=== PATIENT | female | born 1945 | race Caucasian/White ===

== ENCOUNTER 2016-05-18 02:25 | Emergency (ER) | payer MEDICARE, OTHER ==
[2016-05-18] MEDS ORDERED: ACETAMINOPHEN 325 MG TABLET PO ONE (02:55)
--- NOTE | 2016-05-18 02:59 | ERNOTE ---
Medical Problem HPI - General Chief Complaint: Screening, Blood Pressure Time Seen by Provider: 05/18/16 02:43 Source: patient Exam Limitations: no limitations - Immun/Allergies/Home Medications Immunizations: IMMUNIZATION HX Immunizations Up to Date Yes History of Influenza Vaccine Yes Allergies/Adverse Reactions: Allergies morphine Allergy (Severe, Verified 03/06/15 12:00) Hives Penicillins Allergy (Severe, Verified 03/06/15 12:00) LARYNGEAL EDEMA Home Medications: HOME MEDICATIONS Aspirin 325 mg PO DAILY 05/18/16 [Last Taken Unknown] Gabapentin 800 mg PO TID 05/18/16 [Last Taken Unknown] Iron 65 mg PO DAILY 05/18/16 [Last Taken Unknown] Losartan Potassium [Cozaar] 100 mg PO DAILY 05/18/16 [Last Taken Unknown] Methadone HCl [Methadone] 20 mg PO TID 05/18/16 [Last Taken Unknown] Metoprolol Succinate [Toprol Xl] 50 mg PO HS 05/18/16 [Last Taken Unknown] Sertraline HCl [Zoloft] 75 mg PO DAILY 05/18/16 [Last Taken Unknown] - History of Present History Narrative: Pt states she is having a headache, and each time she has a headache her BP is elevated. She took a extra metoprolol at around 22:30 last night. she noted that her bp was still elevated and came to the ED Timing: constant Severity: moderate Review of Systems - Review of Systems Constitutional: Absent: recent illness, fever EYE: Absent: vision changes ENT: Present: no symptoms reported Respiratory: Absent: shortness of breath Cardiology: Absent: chest pain, edema Gastrointestinal/Abdominal: Absent: nausea Genitourinary: Present: no symptoms reported Musculoskeletal: Present: no symptoms reported Skin: Present: no symptoms reported Neurological: Present: See HPI, headache Endocrine: Present: no symptoms reported Hematologic/Lymphatic: Present: no symptoms reported Psych: Present: no symptoms reported - Patient's Past Medical History Patient History - Medical: Anemia, Arthritis, Headache Patient History - Cancer: No Hx of Cancer Patient History - Surgical Procedures: Colonoscopy, Total Knee Replacement LMP (females 10-50): Menopausal - Family History Mother Family History - Medical: Alzheimer's Disease Family History - Cardiac/Respiratory: Pneumonia Father Family History - Cardiac/Respiratory: CVA/Stroke, Myocardial Infarction Brother Family History - Medical: Kidney stone - Social History Living Situations: spouse Smoking Status: Current every day smoker Have you smoked in the past 12 months: Yes Do you dip or chew tobacco: No Alcohol Use: none Drug Use: none Physical Exam - Physical Exam General Appearance: Present: wd/wn, alert, no apparent distress Eye Exam: Normal inspection: bilateral, PERRL: bilateral Neck: Present: normal inspection, nontender Respiratory: Present: no respiratory distress, normal breath sounds, no accessory muscle use, chest nontender, lungs clear Cardiovascular/Chest: Present: regular rate, rhythm, no murmur Back Exam: Present: no CVA tenderness Extremity Exam: Present: non-tender, no edema, normal range of motion Neurological Exam: Present: alert, oriented, normal mood/affect, no motor/ sensory deficits Skin Exam: Present: warm/dry. Absent: skin rash ED Progress - Vital Signs Patient's Vital Signs:: I have reviewed the patient's vital signs. Vital Signs: Vital Signs 05/18/16 02:26 Temperature 36.3 C L Pulse Rate 64 Respiratory 12 Rate Blood Pressure 187/85 O2 Sat by Pulse 96 Oximetry - Progress/Reassessment Chief Complaint: Screening, Blood Pressure Progress:: Improved Progress Note-Subjective: 05/18/16 03:35 BP has improved and headache is improving Departure - Departure Clinical Impression: Hypertension Qualifiers: Hypertension type: essential hypertension Qualified Code(s): I10 - Essential ( primary) hypertension Disposition: Home self-care Condition: Good Instructions: Hypertension, Aumi-ia-Riag Additional Instructions: See your regular doctor if you blood pressure continues to be high Referrals: Suzan Fan MD [Primary Care Provider] -
[2016-05-18] MEDS ORDERED: ACETAMINOPHEN 325 MG TABLET ONE (03:00)
[2016-05-18 03:46] VITALS: BP 157/69
== END 2016-05-18 03:45 | disposition home or self-care (01) ==
LOC: ER 02:25
DX: I10 Essential (primary) hypertension (principal); F17.210 Nicotine dependence, cigarettes, uncomplicated; Z78.0 Asymptomatic menopausal state; Z96.659 Presence of unspecified artificial knee joint

== ENCOUNTER 2020-08-08 22:00 | Observation (INO) ==
[2020-08-08 22:30] LABS: Urine Bilirubin Negative (NEGATIVE); Urine Blood Negative /ul (NEGATIVE); Urine Ketone Negative (NEGATIVE); Urine Nitrite Negative (NEGATIVE); Urine Protein Negative (NEGATIVE); Urine Specific Gravity 1.025 SP.GR. (1.005-1.010); Urine Urobilinogen Normal (NORMAL); Urine pH 5.5 pH (5.0-7.0)
[2020-08-08 22:41] LABS: Urine Appearance Clear (CLEAR); Urine Bacteria 1+; Urine Color Yellow; Urine RBC None Seen /hpf (0-5); Urine WBC 0-5 /hpf (0-5)
[2020-08-08 23:12] LABS: Hematocrit 27.8 % (37.0-47.0); Hemoglobin 8.9 gm/dL (12.5-16.0); Mean Corpuscular Hemoglobin 27.2 pg (27-31); Mean Platelet Volume 8.8 fl (8-12.5); Neutrophil # 13.1 K/mm3 (1.3-6.0); Neutrophil % 87.2 % (42-75.0); Platelet Count 327 K/mm3 (150-450); Red Blood Count 3.27 M/mm3 (4.2-5.4); Red Cell Distribution Width 14.1 % (11.5-14.0)
[2020-08-08 23:19] LABS: Magnesium 1.7 mg/dL (1.2-2.8)
[2020-08-08 23:33] LABS: Albumin * 2.8 gm/dl (3.4-5.0); BUN/Creatinine Ratio 11.4 (9.0-21.6); Bilirubin, Total 0.6 mg/dL (0.0-1.1); Ca. Corrected For Albumin 9.4 mg/dL (8.4-10.2); Calcium * 8.8 mg/dL (7.9-10.9); Carbon Dioxide 26.1 mmol/L (24-32.6); Potassium 3.1 mmol/L (3.4-4.6); Total Protein 8.1 gm/dL (6.2-8.2)
[2020-08-08] MEDS ORDERED: POTASSIUM CHLORIDE 20 MEQ TABLET.SA PO ONE (23:46)
[2020-08-09] MEDS: AZITHROMYCIN 500 MG in DEXTROSE 5 % IN WATER 250 ML IV SCH ×2 (01:01)
[2020-08-09] MEDS ORDERED: ACETAMINOPHEN 500 MG TABLET PO PRN (10:56)
[2020-08-09] MEDS ORDERED: hydrOXYzine HCL 25 MG TABLET PO PRN (11:00)
[2020-08-09] MEDS ORDERED: guaiFENesin 100 MG/5 ML SYRUP PO PRN (11:00)
[2020-08-09] MEDS: VITAMIN B COMPLEX PO SCH (11:16)
[2020-08-09] MEDS: MULTIVIT-MIN/FA/LYCOPEN/LUTEIN 1 TAB TABLET PO SCH (11:16)
[2020-08-09] MEDS: ENOXAPARIN SODIUM 40 MG/0.4 ML SYRG SC SCH (11:16)
[2020-08-09] MEDS: ASPIRIN 325 MG TABLET.DR PO SCH (11:16)
[2020-08-09] MEDS: ASCORBIC ACID 500 MG TABLET PO SCH (11:16)
[2020-08-09] MEDS ORDERED: NORMAL SALINE 1,000 ML IV ONE (11:16)
[2020-08-09 11:34] LABS: Albumin * 2.3 gm/dl (3.4-5.0); Anion Gap 9.4 mmol/L (6.8-13.8); BUN/Creatinine Ratio 10.8 (9.0-21.6); Bilirubin, Total 0.4 mg/dL (0.0-1.1); Ca. Corrected For Albumin 9.7 mg/dL (8.4-10.2); Calcium * 8.7 mg/dL (7.9-10.9); Carbon Dioxide 29.7 mmol/L (24-32.6); Potassium 3.1 mmol/L (3.4-4.6); Total Protein 7.2 gm/dL (6.2-8.2)
--- NOTE | 2020-08-09 11:48 | HP ---
Chief Complaint - Chief Complaint Date of Service: 08/09/20 Time of Service: 11:36 Chief Complaint: I have been feeling weak and had a fever for several days. History of Present Illness: 75-year-old female with past medical history of hypertension, anxiety disorder, depression, TIA, chronic pain syndrome, and CKD was evaluated in the ER for increasing generalized weakness and several episodes of fever over the past few days. Patient reports she has been progressively weak and unable to even stand from a sitting position, and has required assistance that she did not need before. She admits to fever and chills that started 2 days ago and says she's been feeling acutely ill. While in the ER the patient underwent a work-up that revealed leukocytosis with left shift and left lower lobe consolidation with a small pleural effusion on imaging. These findings make an acute lobar pneumonia very likely, so she was started on IV antibiotics in the ER. She was also found to be hypokalemic and received potassium replacement. Medical History (Last Reviewed 08/09/20 @ 02:32 by Arnav Valiente RN) Anemia Onset Date: 09/13/11 Fe def and MGUS Anxiety and depression Onset Date: 03/29/14 Chronic pain Cystocele with uterine prolapse Onset Date: 03/01/12 Hypertension Onset Date: 03/29/14 Neuropathy Onset Date: Unknown lower limbs and back Osteoarthritis Onset Date: 03/29/14 Osteopenia Onset Date: 02/15/13 TIA (transient ischemic attack) Onset Date: 1999 2 Vulvar lesion Onset Date: 02/15/13 Herniated disc Surgical History: Surgical History (Last Reviewed 08/09/20 @ 02:33 by Arnav Valiente RN) Colostomy in place H/O colonoscopy Onset Date: 11/08/14 Tinguely--'10 via colostomy and rectum- normal. '15 normal. Recheck 10 yrs.- 10/31/09, 11/08/14 H/O knee surgery Onset Date: 04/2017 left knee replacement- 05/1999- [facility] in [facility]; redo 04/2017. right knee replacement- 2009- [facility] History of back surgery History of breast biopsy Onset Date: Unknown benign History of cystoscopy Onset Date: 04/2003 Rad[facility] History of esophagogastroduodenoscopy (EGD) Onset Date: 11/08/14 with biopsy- Tinguely- CLOtest negative. clotest negative- 10/01/11, 11/08/14 History of hip surgery Onset Date: 01/02/13 Bilateral hip replacement- [facility] History of lumpectomy of left breast Onset Date: 1969 benign History of sinus surgery Onset Date: 1977 History of tonsillectomy Onset Date: 1962 femur fracture surgery Onset Date: 03/2003 right-permament plate and screws-[facility] punctured artery lower abdomin Pt states that she tried to self cath self and "hit an artery". unsure where. ruptured disk surgery L4-L5 1993 Family History: Family History (Last Reviewed 08/09/20 @ 02:34 by Arnav Valiente RN) Mother , 90 Alzheimers disease CHF (congestive heart failure) CVA (cerebral vascular accident) Pneumonia Father , 66 Pneumonia Heart disease CVA (cerebral vascular accident) Myocardial infarction, Onset Age: 52 Brother Hypertension Diverticulosis Brother Hypertension DJD (degenerative joint disease) Social History: (Last Updated 08/09/20 @ 02:36 by Arnav Valiente RN) Social History: Marital status: lives independently: Yes household members: spouse number of children: 2 current occupational status: retired Service: No Tobacco: Smoking Status: Former smoker tobacco type: cigarettes Years smoked: 5 Alcohol: alcohol intake: never Substance Use: substance use type: does not use Dietary Habits: caffeine: Yes caffeine comment: 5-6/day Type: carbonated beverages Peds Patient Hx - Developmental: No Pertinent Hx Peds Patient Hx - Medical: No Pertinent Hx Peds Patient Hx - Cardiac/Respiratory: No Pertinent Hx Peds Patient Hx - Surgical: No Surgical History Patient History - Cancer: No Hx of Cancer Review Of Systems (GEN) - Review of Systems Generalized/Overall Review: Present: Weakness, Chills, Fever, Fatigue EENTM: Present: No Symptoms Reported Respiratory: Present: No Symptoms Reported Cardiac: Present: No Symptoms Reported Abdominal: Present: No Symptoms Reported Genitourinary: Present: No Symptoms Reported Musculoskeletal: Present: No Symptoms Reported Neurological: Present: No Symptoms Reported Skin: Present: No Symptoms Reported Endocrine: Present: No Symptoms Reported Immunizations: IMMUNIZATION HX Immunizations Up to Date Yes History of Influenza Vaccine Yes Hx Pneumococcal Vaccination Yes Allergies/Adverse Reactions: Allergies Allergy/AdvReac Type Severity Reaction Status Date / Time morphine Allergy Severe Hives Verified 08/08/20 22:59 Penicillins Allergy Severe LARYNGEAL Verified 08/08/20 22:59 EDEMA Home Medications: HOME MEDICATIONS multivit with [id number]-lutein 8 mg iron-400 mcg-300 mcg tablet 1 tab PO DAILY tab 12/24/17 [Last Taken Unknown] vitamin B complex 1 tab PO DAILY 12/24/17 [Last Taken Unknown] methadone 5 mg tablet 5 mg PO BID tab 01/30/19 [Last Taken Unknown] ascorbic acid (vitamin C) 1,000 mg tablet 1 g PO DAILY #90 tab 09/18/19 [Last Taken Unknown] aspirin 325 mg tablet 325 mg PO DAILY #90 tab 09/28/19 [Last Taken Unknown] amlodipine 10 mg tablet 10 mg PO DAILY #90 tab 01/07/20 [Last Taken Unknown] Durable Medical Equipment 0 .ROUTE .MEDSUPPLY #1 ea 01/29/20 [Last Taken Unknown] ostomy supplies See Rx Instructions .ROUTE .MEDSUPPLY #1 ea 06/16/20 [Last Taken Unknown] Hydroxyzine HCl See Rx Instructions PO PRN 08/09/20 [Last Taken Unknown] Exam - Exam Vital Signs: Vital Signs - Last Taken Temp 37.5 C 08/09/20 10:25 Pulse 77 08/09/20 10:25 Resp 18 08/09/20 10:25 BP 111/50 08/09/20 10:25 Pulse Ox 97 08/09/20 10:25 Constitutional: Present: Alert, Oriented x3, Cooperative, No distress, Elderly ENT Exam: Present: normal ENT inspection, hearing grossly normal Eye Exam: bilateral eye: normal inspection, PERRL, EOMI Neck: Present: non-tender, full range of motion, supple, normal inspection, trachea midline Back Exam: Present: no CVA tenderness, no vertebral tenderness, decreased range of motion Breasts: Present: Exam deferred Respiratory: Present: decreased breath sounds, crackles - Crackles and decreased lung sounds on left base Cardiovascular/Chest: Present: normal peripheral pulses, regular rate, rhythm, no chest tenderness, no edema, no gallop, no JVD, no murmur, no rub Peripheral Pulses: dorsalis-pedis (R): 2+, dorsalis-pedis (L): 2+ Abdomen: Present: Normal bowel sounds, soft, nontender, nondistended, no rebound tenderness, no hepatospenomegaly, no masses /Rectal: Present: Exam deferred Extremity: Present: normal range of motion, non-tender, no calf tenderness Skin Exam: Present: normal color, warm/dry, no cyanosis Lymphatic: Present: no adenopathy Neurologic: Present: stockkeeper II-XII nml as tested, normal cerebellar test, no motor/sensory deficits, alert, normal mood/affect, oriented x 3 Appearance: Present: appropriate appearance, appropriate insight, neat, no memory impairment Eye contact: Present: cooperative, good eye contact, normal speech Thoughts: Present: normal thought pattern, no apparent hallucination Diagnostic Studies: Abnormal Lab Results 08/08/20 08/08/20 08/08/20 Range/Units 22:20 23:00 23:00 WBC 15.0 H (4.0-10.5) K/mm3 RBC 3.27 L (4.2-5.4) M/mm3 Hgb 8.9 L (12.5-16.0) gm/dL Hct 27.8 L (37.0-47.0) % RDW 14.1 H (11.5-14.0) % Immature Gran # (Auto) 0.06 H (0.000-0.0310) K/mm3 Neutrophils % 87.2 H (42-75.0) % Lymphocytes % 6.0 L (20-51) % Neutrophils # 13.1 H (1.3-6.0) K/mm3 Lymphocytes # 0.90 L (1.5-3.5) k/mm3 Potassium 3.1 L (3.4-4.6) mmol/L Est GFR (Non-Af Amer) 39 L (60-130) mL/min Random Glucose 139 H (70-110) mg/dL ALT 17 L (19-67) U/L Albumin 2.8 L (3.4-5.0) gm/dl Urine Bacteria 1+ H (NONE) Microbiology 08/08/20 22:20 Urine Culture - Preliminary Urine,Catheterized No Growth Laboratory Results WBC 15.0 K/mm3 (4.0-10.5) H 08/08/20 23:00 RBC 3.27 M/mm3 (4.2-5.4) L 08/08/20 23:00 Hgb 8.9 gm/dL (12.5-16.0) L 08/08/20 23:00 Hct 27.8 % (37.0-47.0) L 08/08/20 23:00 MCV 85.0 fl (78-100) 08/08/20 23:00 MCH 27.2 pg (27-31) 08/08/20 23:00 MCHC 32.0 g/dl (32-36) 08/08/20 23:00 RDW 14.1 % (11.5-14.0) H 08/08/20 23:00 Plt Count 327 K/mm3 (150-450) 08/08/20 23:00 MPV 8.8 fl (8-12.5) 08/08/20 23:00 Immature Gran % (Auto) 0.40 % (0.001-0.429) 08/08/20 23:00 Immature Gran # (Auto) 0.06 K/mm3 (0.000-0.0310) H 08/08/20 23:00 Neutrophils % 87.2 % (42-75.0) H 08/08/20 23:00 Lymphocytes % 6.0 % (20-51) L 08/08/20 23:00 Monocytes % 4.9 % (0.0-9) 08/08/20 23:00 Eosinophils % 1.2 % (0.0-3.0) 08/08/20 23:00 Basophils % 0.3 % (0.0-1.0) 08/08/20 23:00 Nucleated RBC % 0.0 k/mm3 (0-1) 08/08/20 23:00 Neutrophils # 13.1 K/mm3 (1.3-6.0) H 08/08/20 23:00 Lymphocytes # 0.90 k/mm3 (1.5-3.5) L 08/08/20 23:00 Monocytes # 0.7 k/mm3 (0.0-1.0) 08/08/20 23:00 Eosinophils # 0.2 k/mm3 (0.0-0.7) 08/08/20 23:00 Absolute Basophils 0.0 k/mm3 (0.0-0.1) 08/08/20 23:00 Sodium 139 mmol/L (132-142) 08/08/20 23:00 Plasma Sodium 140 mmol/L (130-142) 08/08/20 23:00 Potassium 3.1 mmol/L (3.4-4.6) L 08/08/20 23:00 Chloride 103 mmol/L (97-106) 08/08/20 23:00 Carbon Dioxide 26.1 mmol/L (24-32.6) 08/08/20 23:00 Anion Gap 13.0 mmol/L (6.8-13.8) 08/08/20 23:00 BUN 16 mg/dL (3-23) 08/08/20 23:00 Creatinine 1.40 mg/dL (0.4-1.4) 08/08/20 23:00 Est GFR (Non-Af Amer) 39 mL/min (60-130) L 08/08/20 23:00 BUN/Creatinine Ratio 11.4 (9.0-21.6) 08/08/20 23:00 Random Glucose 139 mg/dL (70-110) H 08/08/20 23:00 Lactic Acid, Venous 0.9 mmol/L (0.4-2.0) 08/08/20 23:00 Calcium 8.8 mg/dL (7.9-10.9) 08/08/20 23:00 Calcium Adj for Albumin 9.4 mg/dL (8.4-10.2) 08/08/20 23:00 Magnesium 1.7 mg/dL (1.2-2.8) 08/08/20 23:00 Total Bilirubin 0.6 mg/dL (0.0-1.1) 08/08/20 23:00 AST 23 U/L (0-48) 08/08/20 23:00 ALT 17 U/L (19-67) L 08/08/20 23:00 Alkaline Phosphatase 133 U/L (50-170) 08/08/20 23:00 Total Protein 8.1 gm/dL (6.2-8.2) 08/08/20 23:00 Albumin 2.8 gm/dl (3.4-5.0) L 08/08/20 23:00 TSH (Reflex) 0.480 uIU/mL (0.358-3.74) 08/08/20 23:00 Urine Color Yellow 08/08/20 22:20 Urine Appearance Clear (CLEAR) 08/08/20 22:20 Urine pH 5.5 pH (5.0-7.0) 08/08/20 22:20 Ur Specific [place] 1.025 SP.GR. (1.005-1.010) 08/08/20 22:20 Urine Protein Negative mg/dL (NEGATIVE) 08/08/20 22:20 Urine Glucose (UA) Negative mg/dL (NEGATIVE) 08/08/20 22:20 Urine Ketones Negative mg/dL (NEGATIVE) 08/08/20 22:20 Urine Blood Negative /ul (NEGATIVE) 08/08/20 22:20 Urine Nitrate Negative (NEGATIVE) 08/08/20 22:20 Urine Bilirubin Negative mg/dl (NEGATIVE) 08/08/20 22:20 Urine Urobilinogen Normal EU/dl (NORMAL) 08/08/20 22:20 Ur Leukocyte Esterase Negative /ul (NEGATIVE) 08/08/20 22:20 Urine RBC None seen /hpf (0-5) 08/08/20 22:20 Urine WBC 0-5 /hpf (0-5) 08/08/20 22:20 Ur Epithelial Cells 0-5 /hpf (0-5) 08/08/20 22:20 Urine Bacteria 1+ (NONE) H 08/08/20 22:20 Urine Culture Comments Culture to follow 08/08/20 22:20 SARS-CoV-2 (PCR) Not detected (NotDetected) 08/09/20 00:07 Assessment/Plan - Narrative Narrative: Patient was evaluated medical chart was reviewed and decision to admit to [facility] for diagnosis of left lobar pneumonia with small pleural effusion was made. Patient is resting comfortably in her room and is tolerating the current treatment without any issues. Since arriving to the floor she has not had recurrence of fever and does not complain of any other symptoms for now. To address her generalized weakness physical therapy was ordered and sessions started this morning. The patient was found to be hypokalemic in the ER and was administered potassium replacement, CMP has been ordered for reevaluation. We will follow-up the results and treat her accordingly. In the meantime we will continue treating with dual antibiotic therapy and IV hydration and reevaluate her tomorrow's morning rounds. - Assessment/Plan (1) Lobar pneumonia Problem: Acute (2) Generalized weakness Problem: Acute (3) Dehydration determined by examination Problem: Acute (4) Hypokalemia Problem: Acute (5) Acute kidney injury superimposed on CKD Problem: Acute
[2020-08-09] MEDS: METHADONE HCL 10 MG TABLET PO SCH ×2 (11:52→20:39)
[2020-08-09] MEDS: POTASSIUM CHLORIDE IN WATER 100 ML IV SCH ×4 (13:14→16:09)
--- NOTE | 2020-08-09 17:59 | HP ---
Chief Complaint - Chief Complaint Date of Service: 08/08/20 Time of Service: 22:50 Chief Complaint: Generalized weakness, fever History of Present Illness: Patient is very nice 75-year-old female present emergency room accompanied by significant other ambulatory with chief complaint of generalized fatigue, fever 100 to about 3 hours ago, not eating well for last 3 weeks and not being able to ambulate with walker. She had a hard time standing from sitting position to grab his walker and walk. She has been in the past with history significant for stage IIIb kidney failure, colostomy due to old low back surgery in 1994. She is taking high blood pressure medications. Patient came to the emergency room mainly due to the fever and not being able to ambulate well denies any chest pain, shortness of breath but she has some off-and-on cough. In the initial evaluation patient has saturation of 87-89 with an room air and significantly improved after being on 2 L of nasal cannula oxygen. Initial evaluation showed the patient is hypokalemic and then we replaced that. X-ray showed patient is having left lobar pneumonia and fever and she fell to the criteria with neutrophilia we getting admit the patient for generalized conditioning and left lobar pneumonia Medical History (Last Reviewed 08/09/20 @ 02:32 by Arnav Valiente RN) Anemia Onset Date: 09/13/11 Fe def and MGUS Anxiety and depression Onset Date: 03/29/14 Chronic pain Cystocele with uterine prolapse Onset Date: 03/01/12 Hypertension Onset Date: 03/29/14 Neuropathy Onset Date: Unknown lower limbs and back Osteoarthritis Onset Date: 03/29/14 Osteopenia Onset Date: 02/15/13 TIA (transient ischemic attack) Onset Date: 1999 2 Vulvar lesion Onset Date: 02/15/13 Herniated disc Surgical History: Surgical History (Last Reviewed 08/09/20 @ 02:33 by Arnav Valiente RN) Colostomy in place H/O colonoscopy Onset Date: 11/08/14 Tinguely--'10 via colostomy and rectum- normal. '15 normal. Recheck 10 yrs.- 10/31/09, 11/08/14 H/O knee surgery Onset Date: 04/2017 left knee replacement- 05/1999- [facility] in [facility]; redo 04/2017. right knee replacement- 2009- [facility] History of back surgery History of breast biopsy Onset Date: Unknown benign History of cystoscopy Onset Date: 04/2003 Rad[facility] History of esophagogastroduodenoscopy (EGD) Onset Date: 11/08/14 with biopsy- [facility]- CLOtest negative. clotest negative- 10/01/11, 11/08/14 History of hip surgery Onset Date: 01/02/13 Bilateral hip replacement- [facility] History of lumpectomy of left breast Onset Date: 1969 benign History of sinus surgery Onset Date: 1977 History of tonsillectomy Onset Date: 1962 femur fracture surgery Onset Date: 03/2003 right-permament plate and screws-[facility] punctured artery lower abdomin Pt states that she tried to self cath self and "hit an artery". unsure where. ruptured disk surgery L4-L5 1993 Family History: Family History (Last Reviewed 08/09/20 @ 02:34 by Arnav Valiente RN) Mother , 90 Alzheimers disease CHF (congestive heart failure) CVA (cerebral vascular accident) Pneumonia Father , 66 Pneumonia Heart disease CVA (cerebral vascular accident) Myocardial infarction, Onset Age: 52 Brother Hypertension Diverticulosis Brother Hypertension DJD (degenerative joint disease) Social History: (Last Updated 08/09/20 @ 02:36 by Arnav Valiente RN) Social History: Marital status: lives independently: Yes household members: spouse number of children: 2 current occupational status: retired Service: No Tobacco: Smoking Status: Former smoker tobacco type: cigarettes Years smoked: 5 Alcohol: alcohol intake: never Substance Use: substance use type: does not use Dietary Habits: caffeine: Yes caffeine comment: 5-6/day Type: carbonated beverages Review Of Systems (GEN) - Review of Systems Misc: All systems neg except as marked Additional Comments: I document all the abnormal finding in HPI Immunizations: IMMUNIZATION HX Immunizations Up to Date Yes History of Influenza Vaccine Yes Hx Pneumococcal Vaccination Yes Allergies/Adverse Reactions: Allergies Allergy/AdvReac Type Severity Reaction Status Date / Time morphine Allergy Severe Hives Verified 08/08/20 22:59 Penicillins Allergy Severe LARYNGEAL Verified 08/08/20 22:59 EDEMA Home Medications: HOME MEDICATIONS multivit with rgendoxx-ggiy-W[place]-lutein 8 mg iron-400 mcg-300 mcg tablet 1 tab PO DAILY tab 12/24/17 [Last Taken Unknown] vitamin B complex 1 tab PO DAILY 12/24/17 [Last Taken Unknown] methadone 5 mg tablet 5 mg PO BID tab 01/30/19 [Last Taken Unknown] ascorbic acid (vitamin C) 1,000 mg tablet 1 g PO DAILY #90 tab 09/18/19 [Last Taken Unknown] aspirin 325 mg tablet 325 mg PO DAILY #90 tab 09/28/19 [Last Taken Unknown] amlodipine 10 mg tablet 10 mg PO DAILY #90 tab 01/07/20 [Last Taken Unknown] Durable Medical Equipment 0 .ROUTE .MEDSUPPLY #1 ea 01/29/20 [Last Taken Unknown] ostomy supplies See Rx Instructions .ROUTE .MEDSUPPLY #1 ea 06/16/20 [Last Taken Unknown] Hydroxyzine HCl See Rx Instructions PO PRN 08/09/20 [Last Taken Unknown] Exam - Exam Vital Signs: Vital Signs - Last Taken Temp 37.5 C 08/09/20 10:25 Pulse 81 08/09/20 14:33 Resp 18 08/09/20 14:33 BP 110/50 08/09/20 14:33 Pulse Ox 93 08/09/20 14:33 Constitutional: Present: Alert, Well developed, No distress. Absent: Well nourished ENT Exam: Present: normal ENT inspection, hearing grossly normal, pharynx normal, TMs normal Eye Exam: bilateral eye: normal inspection, PERRL, EOMI Back Exam: Present: normal inspection, no CVA tenderness, no vertebral tenderness Respiratory: Present: chest non-tender, decreased breath sounds, crackles. Absent: lungs clear, normal breath sounds Cardiovascular/Chest: Present: normal peripheral pulses, regular rate, rhythm, no chest tenderness, no gallop, no JVD. Absent: no edema, JVD Peripheral Pulses: carotid (R): 2+, carotid (L): 2+, femoral (R): 2+, femoral (L): 2+, dorsalis-pedis (R): 2+, dorsalis-pedis (L): 2+, radial (R): 2+, radial (L): 2+ Abdomen: Present: Normal bowel sounds, soft, nontender Extremity: Present: normal range of motion, non-tender, normal inspection, no calf tenderness, pedal edema. Absent: no pedal edema Skin Exam: Present: normal color, warm/dry, no cyanosis Lymphatic: Present: no adenopathy Neurologic: Present: wheel installer II-XII nml as tested, normal cerebellar test Appearance: Present: appropriate appearance, impaired recent memory. Absent: no memory impairment Eye contact: Present: cooperative Diagnostic Studies: Abnormal Lab Results 08/08/20 08/08/20 08/08/20 Range/Units 22:20 23:00 23:00 WBC 15.0 H (4.0-10.5) K/mm3 RBC 3.27 L (4.2-5.4) M/mm3 Hgb 8.9 L (12.5-16.0) gm/dL Hct 27.8 L (37.0-47.0) % RDW 14.1 H (11.5-14.0) % Immature Gran # (Auto) 0.06 H (0.000-0.0310) K/mm3 Neutrophils % 87.2 H (42-75.0) % Lymphocytes % 6.0 L (20-51) % Neutrophils # 13.1 H (1.3-6.0) K/mm3 Lymphocytes # 0.90 L (1.5-3.5) k/mm3 Potassium 3.1 L (3.4-4.6) mmol/L Est GFR (Non-Af Amer) 39 L (60-130) mL/min Random Glucose 139 H (70-110) mg/dL ALT 17 L (19-67) U/L Albumin 2.8 L (3.4-5.0) gm/dl Urine Bacteria 1+ H (NONE) 08/09/20 Range/Units 11:14 WBC (4.0-10.5) K/mm3 RBC (4.2-5.4) M/mm3 Hgb (12.5-16.0) gm/dL Hct (37.0-47.0) % RDW (11.5-14.0) % Immature Gran # (Auto) (0.000-0.0310) K/mm3 Neutrophils % (42-75.0) % Lymphocytes % (20-51) % Neutrophils # (1.3-6.0) K/mm3 Lymphocytes # (1.5-3.5) k/mm3 Potassium 3.1 L (3.4-4.6) mmol/L Est GFR (Non-Af Amer) 43 L (60-130) mL/min Random Glucose (70-110) mg/dL ALT 18 L (19-67) U/L Albumin 2.3 L (3.4-5.0) gm/dl Urine Bacteria (NONE) Microbiology 08/08/20 22:20 Urine Culture - Preliminary Urine,Catheterized No Growth Laboratory Results WBC 15.0 K/mm3 (4.0-10.5) H 08/08/20 23:00 RBC 3.27 M/mm3 (4.2-5.4) L 08/08/20 23:00 Hgb 8.9 gm/dL (12.5-16.0) L 08/08/20 23:00 Hct 27.8 % (37.0-47.0) L 08/08/20 23:00 MCV 85.0 fl (78-100) 08/08/20 23:00 MCH 27.2 pg (27-31) 08/08/20 23:00 MCHC 32.0 g/dl (32-36) 08/08/20 23:00 RDW 14.1 % (11.5-14.0) H 08/08/20 23:00 Plt Count 327 K/mm3 (150-450) 08/08/20 23:00 MPV 8.8 fl (8-12.5) 08/08/20 23:00 Immature Gran % (Auto) 0.40 % (0.001-0.429) 08/08/20 23:00 Immature Gran # (Auto) 0.06 K/mm3 (0.000-0.0310) H 08/08/20 23:00 Neutrophils % 87.2 % (42-75.0) H 08/08/20 23:00 Lymphocytes % 6.0 % (20-51) L 08/08/20 23:00 Monocytes % 4.9 % (0.0-9) 08/08/20 23:00 Eosinophils % 1.2 % (0.0-3.0) 08/08/20 23:00 Basophils % 0.3 % (0.0-1.0) 08/08/20 23:00 Nucleated RBC % 0.0 k/mm3 (0-1) 08/08/20 23:00 Neutrophils # 13.1 K/mm3 (1.3-6.0) H 08/08/20 23:00 Lymphocytes # 0.90 k/mm3 (1.5-3.5) L 08/08/20 23:00 Monocytes # 0.7 k/mm3 (0.0-1.0) 08/08/20 23:00 Eosinophils # 0.2 k/mm3 (0.0-0.7) 08/08/20 23:00 Absolute Basophils 0.0 k/mm3 (0.0-0.1) 08/08/20 23:00 Sodium 141 mmol/L (132-142) 08/09/20 11:14 Plasma Sodium 141 mmol/L (130-142) 08/09/20 11:14 Potassium 3.1 mmol/L (3.4-4.6) L 08/09/20 11:14 Chloride 105 mmol/L (97-106) 08/09/20 11:14 Carbon Dioxide 29.7 mmol/L (24-32.6) 08/09/20 11:14 Anion Gap 9.4 mmol/L (6.8-13.8) 08/09/20 11:14 BUN 14 mg/dL (3-23) 08/09/20 11:14 Creatinine 1.30 mg/dL (0.4-1.4) 08/09/20 11:14 Est GFR (Non-Af Amer) 43 mL/min (60-130) L 08/09/20 11:14 BUN/Creatinine Ratio 10.8 (9.0-21.6) 08/09/20 11:14 Random Glucose 107 mg/dL (70-110) 08/09/20 11:14 Lactic Acid, Venous 0.9 mmol/L (0.4-2.0) 08/08/20 23:00 Calcium 8.7 mg/dL (7.9-10.9) 08/09/20 11:14 Calcium Adj for Albumin 9.7 mg/dL (8.4-10.2) 08/09/20 11:14 Magnesium 1.7 mg/dL (1.2-2.8) 08/08/20 23:00 Total Bilirubin 0.4 mg/dL (0.0-1.1) 08/09/20 11:14 AST 19 U/L (0-48) 08/09/20 11:14 ALT 18 U/L (19-67) L 08/09/20 11:14 Alkaline Phosphatase 111 U/L (50-170) 08/09/20 11:14 Total Protein 7.2 gm/dL (6.2-8.2) 08/09/20 11:14 Albumin 2.3 gm/dl (3.4-5.0) L 08/09/20 11:14 TSH (Reflex) 0.480 uIU/mL (0.358-3.74) 08/08/20 23:00 Urine Color Yellow 08/08/20 22:20 Urine Appearance Clear (CLEAR) 08/08/20 22:20 Urine pH 5.5 pH (5.0-7.0) 08/08/20 22:20 Ur Specific [place] 1.025 SP.GR. (1.005-1.010) 08/08/20 22:20 Urine Protein Negative mg/dL (NEGATIVE) 08/08/20 22:20 Urine Glucose (UA) Negative mg/dL (NEGATIVE) 08/08/20 22:20 Urine Ketones Negative mg/dL (NEGATIVE) 08/08/20 22:20 Urine Blood Negative /ul (NEGATIVE) 08/08/20 22:20 Urine Nitrate Negative (NEGATIVE) 08/08/20 22:20 Urine Bilirubin Negative mg/dl (NEGATIVE) 08/08/20 22:20 Urine Urobilinogen Normal EU/dl (NORMAL) 08/08/20 22:20 Ur Leukocyte Esterase Negative /ul (NEGATIVE) 08/08/20 22:20 Urine RBC None seen /hpf (0-5) 08/08/20 22:20 Urine WBC 0-5 /hpf (0-5) 08/08/20 22:20 Ur Epithelial Cells 0-5 /hpf (0-5) 08/08/20 22:20 Urine Bacteria 1+ (NONE) H 08/08/20 22:20 Urine Culture Comments Culture to follow 08/08/20 22:20 SARS-CoV-2 (PCR) Not detected (NotDetected) 08/09/20 00:07 Assessment/Plan - Narrative Narrative: Patient is being admitted for acute left lobar pneumonia, patient also needs to be evaluated for her general deconditioning I personally talked to the hospitalist and she kindly accepted the patient She will be followed up by her tomorrow
[2020-08-09] MEDS: PANTOPRAZOLE SODIUM 20 MG TABLET.DR PO SCH (20:39)
[2020-08-10] MEDS: AZITHROMYCIN 500 MG in DEXTROSE 5 % IN WATER 250 ML IV SCH ×2 (00:41)
[2020-08-10 06:44] LABS: Hematocrit 26.3 % (37.0-47.0); Hemoglobin 8.3 gm/dL (12.5-16.0); Mean Cell Volume 84.8 fl (78-100); Mean Corpuscular Hemoglobin 26.8 pg (27-31); Mean Corpuscular Hgb Conc 31.6 g/dl (32-36); Mean Platelet Volume 8.6 fl (8-12.5); Platelet Count 317 K/mm3 (150-450); White Blood Count 8.1 K/mm3 (4.0-10.5)
[2020-08-10 06:49] LABS: Total Cells Counted 100
[2020-08-10 06:58] LABS: BUN/Creatinine Ratio 8.3 (9.0-21.6)
[2020-08-10 06:59] LABS: Albumin * 2.4 gm/dl (3.4-5.0); Anion Gap 9.2 mmol/L (6.8-13.8); Bilirubin, Total 0.3 mg/dL (0.0-1.1); Ca. Corrected For Albumin 9.9 mg/dL (8.4-10.2); Calcium * 8.9 mg/dL (7.9-10.9); Potassium 3.2 mmol/L (3.4-4.6); Total Protein 7.1 gm/dL (6.2-8.2)
[2020-08-10] MEDS: PANTOPRAZOLE SODIUM 20 MG TABLET.DR PO SCH (07:05)
[2020-08-10 07:20] LABS: Atypical (Reactive) Lymph 2 % (0-2); Band 1 % (0-2.0); Basophil 1 % (0-1); Basophilic Stippling Trace; Eosinophil 11 % (0-3); Lymphocyte 23 % (20-51); Monocyte 6 % (0-9); Neutrophil 56 % (42-75); Neutrophil # 4.5 K/mm3 (1.3-6.0); Platelet Estimate Normal (NORMAL)
[2020-08-10 07:23] LABS: Anisocytosis Trace; Hypochromia 1+
[2020-08-10] MEDS: ASCORBIC ACID 500 MG TABLET PO SCH (10:01)
[2020-08-10] MEDS: ASPIRIN 325 MG TABLET.DR PO SCH (10:01)
[2020-08-10] MEDS: METHADONE HCL 10 MG TABLET PO SCH (10:01)
[2020-08-10] MEDS: MULTIVIT-MIN/FA/LYCOPEN/LUTEIN 1 TAB TABLET PO SCH (10:01)
[2020-08-10] MEDS: VITAMIN B COMPLEX PO SCH (10:01)
[2020-08-10] MEDS: ENOXAPARIN SODIUM 40 MG/0.4 ML SYRG SC SCH (10:02)
[2020-08-10] MEDS ORDERED: POTASSIUM CHLORIDE 20 MEQ TABLET.SA PO ONE (12:01)
--- NOTE | 2020-08-10 12:21 | DS ---
(1) Lobar pneumonia Problem: Acute (2) Generalized weakness Problem: Acute (3) Dehydration determined by examination Problem: Acute (4) Hypokalemia Problem: Acute (5) Acute kidney injury superimposed on CKD Problem: Acute Date of Discharge:: 08/10/20 Hospital Course: 75-year-old female admitted for acute lobar pneumonia, dehydration, and generalized weakness was evaluated bedside this morning and was found to be afebrile and in no acute distress. Patient was in better spirits today and reports feeling stronger however she still reports residual weakness during activities. It was explained to patient that her original strength would take a few days to return and we expect that, in the meantime she is to increase her hydration and oral intake to nourish her body. Patient's blood pressure only slightly improved with 4 bags of potassium, therefore an additional dose of oral potassium was ordered. Her renal function has significantly improved however. We will discharge patient with instructions to follow-up with me her PCP in the clinic with a follow-up CMP to reevaluate electrolytes and renal function. Patient will also need assistance at home for several days, so she has agreed to home health services with . Mrs. Partida is homebound due to limited ambulation and significant issues with balance. She has a need for ongoing physical therapy to address her weakness and issues with balance, this was recommended by her in-hospital physical therapist. She will also need a home health aide to assist with activities of daily living since herself and her are both elderly. Therefore orders for home health with with PT and a home health aide were placed. The need for home health care at skilled services is directly related to the time spent [id number] with the patient. Procedures Performed: none Results and Findings: Pending Mircobiology Results 08/08/20 22:20 Urine,Catheterized Urine Culture - Preliminary No Pathogens Isolated 08/08/20 23:25 Blood Blood Culture - Preliminary NO GROWTH 24 HOURS 08/08/20 23:00 Blood Blood Culture - Preliminary NO GROWTH 24 HOURS Lab Pending Results 08/08/20 22:20: Urine Color Yellow, Urine Appearance Clear, Urine pH 5.5, Ur Specific [place] 1.025, Urine Protein Negative, Urine Glucose (UA) Negative, Urine Ketones Negative, Urine Blood Negative, Urine Nitrate Negative, Urine Bilirubin Negative, Urine Urobilinogen Normal, Ur Leukocyte Esterase Negative, Urine RBC None seen, Urine WBC 0-5, Ur Epithelial Cells 0-5, Urine Bacteria 1+ H, Urine Culture Comments Culture to follow 08/08/20 23:00: WBC 15.0 H, RBC 3.27 L, Hgb 8.9 L, Hct 27.8 L, MCV 85.0, MCH 27.2, MCHC 32.0, RDW 14.1 H, Plt Count 327, MPV 8.8, Immature Gran % (Auto) 0.40, Immature Gran # (Auto) 0.06 H, Neutrophils % 87.2 H, Lymphocytes % 6.0 L, Monocytes % 4.9, Eosinophils % 1.2, Basophils % 0.3, Nucleated RBC % 0.0, Neutrophils # 13.1 H, Lymphocytes # 0.90 L, Monocytes # 0.7, Eosinophils # 0.2, Absolute Basophils 0.0 08/08/20 23:00: Sodium 139, Plasma Sodium 140, Potassium 3.1 L, Chloride 103, Carbon Dioxide 26.1, Anion Gap 13.0, BUN 16, Creatinine 1.40, Est GFR (Non-Af Amer) 39 L, BUN/Creatinine Ratio 11.4, Random Glucose 139 H, Calcium 8.8, Ca lcium Adj for Albumin 9.4, Magnesium 1.7, Total Bilirubin 0.6, AST 23, ALT 17 L, Alkaline Phosphatase 133, Total Protein 8.1, Albumin 2.8 L, TSH (Reflex) 0.480 08/08/20 23:00: Lactic Acid, Venous 0.9 08/09/20 00:07: SARS-CoV-2 (PCR) Not detected 08/09/20 11:14: Sodium 141, Plasma Sodium 141, Potassium 3.1 L, Chloride 105, C arbon Dioxide 29.7, Anion Gap 9.4, BUN 14, Creatinine 1.30, Est GFR (Non-Af Amer) 43 L, BUN/Creatinine Ratio 10.8, Random Glucose 107, Calcium 8.7, Calcium Adj for Albumin 9.7, Total Bilirubin 0.4, AST 19, ALT 18 L, Alkaline Phosphatase 111, Total Protein 7.2, Albumin 2.3 L 08/10/20 06:22: WBC 8.1 D, RBC 3.10 L, Hgb 8.3 L, Hct 26.3 L, MCV 84.8, MCH 26.8 L, MCHC 31.6 L, RDW 14.0, Plt Count 317, MPV 8.6, Neutrophils % (Manual) 56, Band Neuts % (Manual) 1, Lymphocytes % (Manual) 23, Monocytes % (Manual) 6, Eosinophils % (Manual) 11 H, Basophils % (Manual) 1, Neutrophils # (Manual) 4.5, Lymphocytes # (Manual) 1.9, Monocytes # (Manual) 0.5, Eosinophils # (Manual) 0.9 H, Basophils # (Manual) 0.1, Atypic/Reactive Lymphs 2, Platelet Estimate Normal, Hypochromasia 1+, Basophilic Stippling Trace, Anisocytosis Trace 08/10/20 06:22: Sodium 135, Plasma Sodium 135, Potassium 3.2 L, Chloride 101, Carbon Dioxide 28.0, Anion Gap 9.2, BUN 9, Creatinine 1.08, Est GFR (Non-Af Amer) 53 L D, BUN/Creatinine Ratio 8.3 L, Random Glucose 82, Calcium 8.9, Calcium Adj for Albumin 9.9, Total Bilirubin 0.3, AST 20, ALT 16 L, Alkaline Phosphatase 105, Total Protein 7.1, Albumin 2.4 L Discharge Location: Home Disposition: Home Health Service Home Health Agency: [facility] Home Health Condition: Stable Face to Face Encounter completed per [facility] Guidelines: Yes Discharge Activity: Activity as tolerated Discharge Diet: General/regular food Referrals: Chetna Mauro MD [Primary Care Provider] - Prescriptions (Any new or edited meds): Azithromycin 250 mg PO DAILY 5 Days tablet Complete Home Medications List: Complete Home Medication List: multivit with uvraijzu-khyd-[place]-lutein 8 mg iron-400 mcg-300 mcg tablet 1 tab PO DAILY tab 12/24/17 vitamin B complex 1 tab PO DAILY 12/24/17 methadone 5 mg tablet 5 mg PO BID tab 01/30/19 ascorbic acid (vitamin C) 1,000 mg tablet 1 g PO DAILY #90 tab 09/18/19 aspirin 325 mg tablet 325 mg PO DAILY #90 tab 09/28/19 amlodipine 10 mg tablet 10 mg PO DAILY #90 tab 01/07/20 Durable Medical Equipment 0 .ROUTE .MEDSUPPLY #1 ea 01/29/20 ostomy supplies See Rx Instructions .ROUTE .MEDSUPPLY #1 ea 06/16/20 Hydroxyzine HCl See Rx Instructions PO PRN 08/09/20 Azithromycin 250 mg PO DAILY 5 Days tablet 08/10/20 Forms: Patient Portal Registration
[2020-08-10 15:47] VITALS: BP 118/72
== END 2020-08-10 14:57 | disposition home health service (06) ==
LOC: MS 22:00 → ER 22:00 → MS 08-09 02:15
PROVIDERS: ADMIT Family Medicine; ATTEND Family Medicine
DX: I12.9 Hypertensive chronic kidney disease with stage 1 through stage 4 chronic kidney disease, or unspecified chronic kidney disease; E86.0 Dehydration; N18.32 Chronic kidney disease, stage 3b; N17.9 Acute kidney failure, unspecified; Z93.3 Colostomy status; R50.9 Fever, unspecified; R53.1 Weakness; J18.1 Lobar pneumonia, unspecified organism; Z87.891 Personal history of nicotine dependence; E87.6 Hypokalemia